=== PATIENT | female | born 1980 | race African-American/Black ===

== ENCOUNTER 2016-11-15 12:52 | Emergency (ER) | payer MEDICAID ==
--- NOTE | 2016-11-15 13:11 | ER Document Report ---
ED General - General Chief Complaint: Headache Stated Complaint: HEADACHE Time Seen by Provider: 11/15/16 13:00 Mode of Arrival: Ambulatory Information source: Patient Notes: 36-year-old female presents with complaints of headache of one-week duration that is waxing and waning. Patient states she has had headaches in the past but believes this is a migraine. Symptoms started with her menses. Patient admits to photophobia mild noise sensitivity. Patient denies any neurological deficits. She notes she stopped taking her amlodipine believes from blood pressure may be causing this TRAVEL OUTSIDE OF THE [place] IN LAST 30 DAYS: No - HPI Onset: Last week Onset/Duration: Persistent, Waxing and waning Quality of pain: Achy, Pressure Severity: Mild Pain Level: 1 Associated symptoms: Other Exacerbated by: Other Relieved by: Denies Similar symptoms previously: No Recently seen / treated by doctor: No - Related Data Allergies/Adverse Reactions: No Known Allergies Allergy (Verified 11/15/16 12:54) Past Medical History - Social History Smoking Status: Never Smoker Cigarette use (# per day): No Chew tobacco use (# tins/day): No Smoking Education Provided: No Family History: Reviewed & Not Pertinent Patient has suicidal ideation: No Patient has homicidal ideation: No Pulmonary Medical History: Reports: Hx Asthma Renal/ Medical History: Denies: Hx Peritoneal Dialysis - Immunizations Immunizations up to date: Yes Hx Diphtheria, Pertussis, Tetanus Vaccination: Yes Review of Systems - Review of Systems Notes: REVIEW OF SYSTEMS: CONSTITUTIONAL : Denies fever, chills, or sweats. Denies recent illness. EENT: Denies eye, ear, throat, or mouth pain or symptoms. Denies nasal or sinus congestion or discharge. Denies throat, tongue, or mouth swelling or difficulty swallowing. CARDIOVASCULAR: Denies chest pain. Denies palpitations or racing or irregular heart beat. Denies ankle edema. RESPIRATORY: Denies cough, cold, or chest congestion. Denies shortness of breath, difficulty breathing, or wheezing. GASTROINTESTINAL: Denies abdominal pain or distention. Denies nausea, vomiting , or diarrhea. Denies blood in vomitus, stools, or per rectum. Denies black, tarry stools. Denies constipation. GENITOURINARY: Denies difficulty urinating, painful urination, burning, frequency, blood in urine, or discharge. FEMALE GENITOURINARY: Denies vaginal bleeding, heavy or abnormal periods, irregular periods. Denies vaginal discharge or odor. MUSCULOSKELETAL: Denies back or neck pain or stiffness. Denies joint pain or swelling. SKIN: Denies rash, lesions or sores. HEMATOLOGIC : Denies easy bruising or bleeding. LYMPHATIC: Denies swollen, enlarged glands. NEUROLOGICAL: Admits to headache light sensitivity PSYCHIATRIC: Denies anxiety or stress. Denies depression, suicidal ideation, or homicidal ideation. ALL OTHER SYSTEMS REVIEWED AND NEGATIVE. PHYSICAL EXAMINATION: GENERAL: Well-appearing, well-nourished and in no acute distress. HEAD: Atraumatic, normocephalic. EYES: Pupils equal round and reactive to light, extraocular movements intact, conjunctiva are normal. ENT: Nares patent, oropharynx clear without exudates. Moist mucous membranes. NECK: Normal range of motion, supple without lymphadenopathy LUNGS: Breath sounds clear to auscultation bilaterally and equal. No wheezes rales or rhonchi. HEART: Regular rate and rhythm without murmurs ABDOMEN: Soft, nontender, nondistended abdomen. No guarding, no rebound. No masses appreciated. Female : deferred Musculoskeletal: Normal range of motion, no pitting or edema. No cyanosis. NEUROLOGICAL: Cranial nerves grossly intact. Normal speech, normal gait. Normal sensory, motor exams PSYCH: Normal mood, normal affect. SKIN: Warm, Dry, normal turgor, no rashes or lesions noted. Dictation was performed using [employer] voice recognition software Physical Exam - Vital signs Vitals: Temp Pulse Resp BP Pulse Ox 98.6 F 66 18 151/99 H 100 11/15/16 12:55 11/15/16 12:55 11/15/16 12:55 11/15/16 12:55 11/15/16 12:55 Course - Re-evaluation Re-evalutation: 11/15/16 13:11 Patient's neurological exam was intact, CT head is pending at this time 11/15/16 14:03 CT head noted no acute abnormality, patient was given medication wishes to wait in the waiting room for her ride After performing a Medical Screening Examination, I estimate there is LOW risk for ACUTE GLAUCOMA, TEMPORAL ARTERITIS, MENINGITIS, INCRANIAL HEMORRHAGE, or ISCHEMIC STROKE thus I consider the discharge disposition reasonable. I have reevaluated this patient multiple times and no significant life threatening changes are noted. The patient and I have discussed the diagnosis and risks, and we agree with discharging home with close follow-up with the understanding that symptoms and presentations can change. We also discussed returning to the Emergency Department immediately if new or worsening symptoms occur. We have discussed the symptoms which are most concerning (e.g., changing or worsening symptoms, new numbness or weakness, vomiting, fever) that necessitate immediate return. - Vital Signs Vital signs: Temp Pulse Resp BP Pulse Ox 98.6 F 66 18 151/99 H 100 11/15/16 12:55 11/15/16 12:55 11/15/16 12:55 11/15/16 12:55 11/15/16 12:55 - Diagnostic Test Radiology reviewed: Image reviewed, Reports reviewed - no acute abnormality Discharge - Discharge Clinical Impression: Migraine Qualifiers: Migraine type: with aura Status migrainosus presence: without status migrainosus Intractability: not intractable Qualified Code(s): G43.109 - Migraine with aura, not intractable, without status migrainosus Condition: Stable Disposition: HOME, SELF-CARE Instructions: Headache ([facility]) Prescriptions: Diphenhydramine HCl [Benadryl 50 mg Capsule] 50 mg PO Q6 #20 capsule Promethazine HCl [Phenergan 25 mg Tablet] 1 - 2 tab PO Q6H PRN #15 tablet PRN Reason: Referrals: ZACKERY REAL MD [ACTIVE STAFF] - Follow up tomorrow
[2016-11-15] MEDS ORDERED: PROCHLORPERAZINE EDISYLATE INJ 10 MG/2 ML VIAL IM ONE (13:49)
[2016-11-15] MEDS ORDERED: DIPHENHYDRAMINE HCL 50 MG/ML VIAL IM ONE (13:49)
--- NOTE | 2016-11-15 13:57 | RADIOLOGY REPORT (SQ) ---
EXAM DESCRIPTION: CT HEAD WITHOUT COMPLETED DATE/TIME: 11/15/2016 1:39 pm REASON FOR STUDY: headache COMPARISON: None. TECHNIQUE: Axial images acquired through the brain without intravenous contrast. Images reviewed wi th bone, brain and subdural windows. Images stored on PACS. All CT scanners at this facility use dose modulation, iterative reconstruction, and/or weight based d osing when appropriate to reduce radiation dose to as low as reasonably achievable (ALARA). [facility]: Dose Right [facility]: CareDose [facility]: Dose Right [facility]: Teradose 4D [facility]: OneBreath RADIATION DOSE: Up-to-date CT equipment and radiation dose reduction techniques were employed. CTDIv ol: 49.0 mGy. DLP: 881 mGy-cm. mGy. LIMITATIONS: None. FINDINGS: VENTRICLES: Normal size and contour. CEREBRUM: No masses. No hemorrhage. No midline shift. No evidence for acute infarction. Normal gra y/white matter differentiation. No areas of low density in the white matter. CEREBELLUM: No masses. No hemorrhage. No alteration of density. No evidence for acute infarction. EXTRAAXIAL SPACES: No fluid collections. No masses. ORBITS AND GLOBE: No intra- or extraconal masses. Normal contour of globe without masses. CALVARIUM: No fracture. PARANASAL SINUSES: No fluid or mucosal thickening. SOFT TISSUES: No mass or hematoma. OTHER: No other significant finding. IMPRESSION: NORMAL BRAIN CT WITHOUT CONTRAST. EVIDENCE OF ACUTE STROKE: NO. COMMENT: Quality ID # [id number]: Final reports with documentation of one or more dose reduction techniques (e.g., Automated exposure control, adjustment of the mA and/or kV according to patient size, use of iterative reconstruction technique) TECHNICAL DOCUMENTATION: JOB ID: [id number] [employer]- All Rights Reserved
[2016-11-15 14:07] VITALS: BP 137/81
--- NOTE | 2016-11-17 16:46 | EKG REPORT ---
SEVERITY:- BORDERLINE ECG - SINUS RHYTHM BORDERLINE T ABNORMALITIES, INFERIOR LEADS : Confirmed by: Jemma Butts MD 17-Nov-2016 16:45:09
== END 2016-11-15 14:10 | disposition home or self-care (01) ==
LOC: ER 12:52
DX: G43.109 Migraine with aura, not intractable, without status migrainosus (principal)
CPT/HCPCS: 93005; 99284; 96372; 70450; 93010; J1200; J0780

== ENCOUNTER 2016-12-12 10:19 | Emergency (ER) | payer MEDICAID ==
[2016-12-12] MEDS ORDERED: DIPHENHYDRAMINE HCL 50 MG/ML VIAL IM ONE (10:34)
--- NOTE | 2016-12-12 10:36 | ER Document Report ---
ED Medical Screen (RME) - General Mode of Arrival: Ambulatory Information source: Patient TRAVEL OUTSIDE OF THE [place] IN LAST 30 DAYS: No - General Chief Complaint: Probable Seizure Stated Complaint: POSSIBLE SEIZURES Time Seen by Provider: 12/12/16 10:24 Notes: Patient is a 36 year old female presenting to the emergency department for a possible seizure. Patient states she has been having shaking episodes since yesterday and they come on sporadically. Patient states she has a history of migraines, PTSD, depression, anxiety and hypertension. Patient states she has a slight headache now and states it is similar to her daily headaches that are present when she doesn't have a migraine. Patient has recently started taking 2 new medications x1 week ago which are Rizatriptan and Topiramate. Patient denies any numbness or tingling and states she does not know if she had these episodes while she was sleeping. (BONNIE KAUR) - Related Data Allergies/Adverse Reactions: No Known Allergies Allergy (Verified 12/12/16 10:24) Home Medications: Current Home Medications Amlodipine Besylate [Norvasc 10 mg Tablet] 10 mg PO DAILY 12/12/16 [History] Propranolol HCl [Inderal 40 Mg Tablet] 40 mg PO BID 12/12/16 [History] Rizatriptan Benzoate [Maxalt [employer] Officer] 10 mg PO Q2 PRN MDD 2 tabs 12/12/16 [History] Topiramate [Trokendi Xr] 25 mg PO QAM 12/12/16 [History] Past Medical History - Past Medical History Cardiac Medical History: Reports: Hx Hypertension Pulmonary Medical History: Reports: Hx Asthma Renal/ Medical History: Denies: Hx Peritoneal Dialysis - Immunizations Immunizations up to date: Yes Hx Diphtheria, Pertussis, Tetanus Vaccination: Yes Physical Exam - Vital signs Interpretation: Normal - Vital signs Vitals: Temp Pulse Resp BP Pulse Ox 99.7 F 66 20 122/97 H 100 12/12/16 10:23 12/12/16 10:23 12/12/16 10:23 12/12/16 10:23 12/12/16 10:23 - Notes Notes: GENERAL: Alert, interacts well. Jerking motions of the arms and head during exam -able to talk, follow commands, and squeeze fingers during the jerking motions. No evidence of stroke or seizure. HEAD: Normocephalic, atraumatic, no facial droop. EYES: Pupils equal, round, and reactive to light. Extraocular movements intact. Wearing sunglasses. ENT: Oral mucosa moist, tongue midline. NECK: Full range of motion. Supple. Trachea midline. LUNGS: Clear to auscultation bilaterally, no wheezes, rales, or rhonchi. No respiratory distress. HEART: Regular rate and rhythm. No murmurs, gallops, or rubs. EXTREMITIES: Jerking motions of the upper extremities-able to squeeze fingers with hands and follow commands. NEUROLOGICAL: Alert and oriented x3. Normal speech. PSYCH: Appears annoyed and depressed when discussing the plan for treatment, cannot clarify what else she is concerned about. (BONNIE KAUR) Course - Re-evaluation Re-evalutation: 12/12/16 10:36 Newly started as a triptan and topiramate, suspect possible akathisia's, treat with Benadryl. Check blood work, more detailed exam in the main side of the emergency department. No evidence of stroke or seizure. (VITA VILLANUEVA) - Vital Signs Vital signs: Temp Pulse Resp BP Pulse Ox 99.7 F 66 20 122/97 H 100 12/12/16 10:23 12/12/16 10:23 12/12/16 10:23 12/12/16 10:23 12/12/16 10:23 Scribe Documentation - Scribe Written by Scribe:: Bonnie Kaur, Bj, 12/12/16 10:37 acting as scribe for :: Aedla
[2016-12-12 11:06] LABS: ABSOLUTE EOSINOPHILS # (AUTO) 0.1 10^3/uL (0.0-0.6); ABSOLUTE LYMPHOCYTES (AUTO) 2.7 10^3/uL (0.5-4.7); ABSOLUTE MONOCYTES (AUTO) 0.4 10^3/uL (0.1-1.4); ABSOLUTE NEUT (AUTO) 3.4 10^3/uL (1.7-8.2); BASOPHILS % (AUTO) 0.2 % (0-2); EOSINOPHILS % (AUTO) 1.5 % (0-6); HEMATOCRIT 35.9 % (36.0-47.0); HEMOGLOBIN 12.2 g/dL (12.0-15.5); HGB HCT DIFFERENCE 0.7; LYMPHOCYTES % (AUTO) 40.3 % (13-45); MEAN CORPUSCULAR HEMOGLOBIN 27.5 pg (27.0-33.4); MEAN CORPUSCULAR HGB CONC 34.1 g/dL (32.0-36.0); MEAN CORPUSCULAR VOLUME 81 fl (80-97); MONOCYTES % (AUTO) 6.4 % (3-13); RED BLOOD COUNT 4.45 10^6/uL (3.72-5.28); RED CELL DISTRIBUTION WIDTH 14.1 % (11.5-14.0); SEGMENTED NEUTROPHILS % (AUTO) 51.6 % (42-78); WHITE BLOOD COUNT 6.6 10^3/uL (4.0-10.5)
[2016-12-12 11:12] LABS: APPEARANCE,URINE SLIGHTLY-CLOUDY; BILIRUBIN,URINE NEGATIVE (NEGATIVE); GLUCOSE, URINE NEGATIVE (NEGATIVE); KETONES,URINE NEGATIVE (NEGATIVE); LEUKOCYTE ESTERASE,URINE TRACE (NEGATIVE); NITRITE,URINE NEGATIVE (NEGATIVE); PROTEIN,URINE 30 mg/dL (NEGATIVE); URINE SPECIFIC GRAVITY 1.026
[2016-12-12 11:25] LABS: ALANINE AMINOTRANSFERASE 28 U/L (9-52); ALBUMIN 4.8 g/dL (3.5-5.0); ALKALINE PHOSPHATASE 62 U/L (38-126); ANION GAP 15 (5-19); ASPARTATE AMINO TRANSFERASE 16 U/L (14-36); BILIRUBIN,DIRECT 0.4 mg/dL (0.0-0.4); BILIRUBIN,TOTAL 0.5 mg/dL (0.2-1.3); BLOOD UREA NITROGEN 18 mg/dL (7-20); CALCIUM 10.2 mg/dL (8.4-10.2); CARBON DIOXIDE 25 mmol/L (22-30); CHLORIDE 108 mmol/L (98-107); CREATININE RESULT 0.99 mg/dL (0.52-1.25); GLUCOSE 104 mg/dL (75-110); POTASSIUM 4.3 mmol/L (3.6-5.0); SODIUM 147.6 mmol/L (137-145); TOTAL PROTEIN 8.6 g/dL (6.3-8.2)
[2016-12-12 11:33] LABS: URINE BARBITURATES SCREEN NEGATIVE; URINE METHADONE SCREEN NEGATIVE; URINE OPIATES LOW NEGATIVE; URINE PHENCYCLIDINE SCREEN NEGATIVE
--- NOTE | 2016-12-12 12:30 | ER Document Report ---
ED General - General Chief Complaint: Probable Seizure Stated Complaint: POSSIBLE SEIZURES Time Seen by Provider: 12/12/16 10:24 Mode of Arrival: Ambulatory Information source: Patient Notes: 36-year-old female history of migraine headaches who was started on Topamax and Almas triptan presents with complaints of jerking episodes. Patient notes symptoms have been ongoing now for 2 days denies any fevers chills denies any nausea vomiting or diarrhea. Patient states she is awake when the jerking events occur and is concerned that she may be having seizures TRAVEL OUTSIDE OF THE [place] IN LAST 30 DAYS: No - HPI Onset: Other Onset/Duration: Intermittent Quality of pain: No pain Severity: Mild Pain Level: Denies Associated symptoms: Other Exacerbated by: Denies Relieved by: Denies Similar symptoms previously: No Recently seen / treated by doctor: No - Related Data Allergies/Adverse Reactions: No Known Allergies Allergy (Verified 12/12/16 10:24) Home Medications: Current Home Medications Amlodipine Besylate [Norvasc 10 mg Tablet] 10 mg PO DAILY 12/12/16 [History] Propranolol HCl [Inderal 40 Mg Tablet] 40 mg PO BID 12/12/16 [History] Rizatriptan Benzoate [Maxalt Forensic Anthropologist] 10 mg PO Q2 PRN MDD 2 tabs 12/12/16 [History] Topiramate [Trokendi Xr] 25 mg PO QAM 12/12/16 [History] Past Medical History - General Information source: Patient - Social History Smoking Status: Never Smoker Cigarette use (# per day): No Chew tobacco use (# tins/day): No Smoking Education Provided: No Frequency of alcohol use: None Drug Abuse: None Family History: Reviewed & Not Pertinent - Past Medical History Cardiac Medical History: Reports: Hx Hypertension Pulmonary Medical History: Reports: Hx Asthma Neurological Medical History: Reports: Hx Migraine Renal/ Medical History: Denies: Hx Peritoneal Dialysis Psychiatric Medical History: Reports: Hx Depression Surgical Hx: Negative - Immunizations Immunizations up to date: Yes Hx Diphtheria, Pertussis, Tetanus Vaccination: Yes Review of Systems - Review of Systems Notes: REVIEW OF SYSTEMS: CONSTITUTIONAL : Denies fever, chills, or sweats. Denies recent illness. EENT: Denies eye, ear, throat, or mouth pain or symptoms. Denies nasal or sinus congestion or discharge. Denies throat, tongue, or mouth swelling or difficulty swallowing. CARDIOVASCULAR: Denies chest pain. Denies palpitations or racing or irregular heart beat. Denies ankle edema. RESPIRATORY: Denies cough, cold, or chest congestion. Denies shortness of breath, difficulty breathing, or wheezing. GASTROINTESTINAL: Denies abdominal pain or distention. Denies nausea, vomiting , or diarrhea. Denies blood in vomitus, stools, or per rectum. Denies black, tarry stools. Denies constipation. GENITOURINARY: Denies difficulty urinating, painful urination, burning, frequency, blood in urine, or discharge. FEMALE GENITOURINARY: Denies vaginal bleeding, heavy or abnormal periods, irregular periods. Denies vaginal discharge or odor. MUSCULOSKELETAL: Admits to drinking episodes SKIN: Denies rash, lesions or sores. HEMATOLOGIC : Denies easy bruising or bleeding. LYMPHATIC: Denies swollen, enlarged glands. NEUROLOGICAL: Denies confusion or altered mental status. Denies passing out or loss of consciousness. Denies dizziness or lightheadedness. Denies headache. Denies weakness or paralysis or loss of use of either side. Denies problems with gait or speech. Denies sensory loss, numbness, or tingling. Denies seizures. PSYCHIATRIC: Denies anxiety or stress. Denies depression, suicidal ideation, or homicidal ideation. ALL OTHER SYSTEMS REVIEWED AND NEGATIVE. PHYSICAL EXAMINATION: GENERAL: Well-appearing, well-nourished and in no acute distress. HEAD: Atraumatic, normocephalic. EYES: Pupils equal round and reactive to light, extraocular movements intact, conjunctiva are normal. ENT: Nares patent, oropharynx clear without exudates. Moist mucous membranes. NECK: Normal range of motion, supple without lymphadenopathy LUNGS: Breath sounds clear to auscultation bilaterally and equal. No wheezes rales or rhonchi. HEART: Regular rate and rhythm without murmurs ABDOMEN: Soft, nontender, nondistended abdomen. No guarding, no rebound. No masses appreciated. Female : deferred Musculoskeletal: Normal range of motion, no pitting or edema. No cyanosis. NEUROLOGICAL: Cranial nerves grossly intact. Normal speech, normal gait. Normal sensory, motor exams PSYCH: Normal mood, normal affect. SKIN: Warm, Dry, normal turgor, no rashes or lesions noted. Dictation was performed using [employer] voice recognition software Physical Exam - Vital signs Vitals: Temp Pulse Resp BP Pulse Ox 99.7 F 66 20 122/97 H 100 12/12/16 10:23 12/12/16 10:23 12/12/16 10:23 12/12/16 10:23 12/12/16 10:23 Course - Re-evaluation Re-evalutation: 12/12/16 12:27 Rizatriptan and Topiramate had recently been started on the patient 6 days ago , I have concerned that she may be having a dystonic reaction secondary to this , I have asked for her to not take the raise the triptan and to instead continue the Topamax at this time while taking Benadryl. If the patient's symptoms do not improve then it may be the Topamax that is the issue. Patient has been instructed to follow-up with a neurologist for further evaluation care 12/12/16 15:32 After performing a Medical Screening Examination, I estimate there is LOW risk for ACUTE GLAUCOMA, TEMPORAL ARTERITIS, MENINGITIS, INCRANIAL HEMORRHAGE, or ISCHEMIC STROKE thus I consider the discharge disposition reasonable. I have reevaluated this patient multiple times and no significant life threatening changes are noted. The patient and I have discussed the diagnosis and risks, and we agree with discharging home with close follow-up with the understanding that symptoms and presentations can change. We also discussed returning to the Emergency Department immediately if new or worsening symptoms occur. We have discussed the symptoms which are most concerning (e.g., changing or worsening symptoms, new numbness or weakness, vomiting, fever) that necessitate immediate return. - Vital Signs Vital signs: Temp Pulse Resp BP Pulse Ox 98.9 F 69 16 111/84 100 12/12/16 12:47 12/12/16 12:47 12/12/16 12:47 12/12/16 12:47 12/12/16 12:47 - Laboratory Result Diagrams: 12/12/16 10:55 12/12/16 10:55 Laboratory results interpreted by me: 12/12/16 12/12/16 12/12/16 10:45 10:55 10:55 Hct 35.9 L RDW 14.1 H Sodium 147.6 H Chloride 108 H Total Protein 8.6 H Urine Protein 30 H Urine Urobilinogen 2.0 H Ur Leukocyte Esterase TRACE H Urine Ascorbic Acid 40 H Discharge - Discharge Clinical Impression: Medication reaction Qualifiers: Encounter type: initial encounter Qualified Code(s): T88.7XXA - Unspecified adverse effect of drug or medicament, initial encounter Condition: Stable Disposition: HOME, SELF-CARE Instructions: Dystonic Reaction to Medication ([facility]) Additional Instructions: Please follow-up with your neurologist for reevaluation or return immediately if there are any other concerns Prescriptions: Diphenhydramine HCl [Benadryl 50 mg Capsule] 1 cap PO Q6 PRN #20 capsule PRN Reason:
[2016-12-12 12:48] VITALS: BP 111/84
== END 2016-12-12 12:47 | disposition home or self-care (01) ==
LOC: ER 10:19
DX: T88.7XXA Unspecified adverse effect of drug or medicament, initial encounter (principal); R25.1 Tremor, unspecified; Z79.899 Other long term (current) drug therapy
CPT/HCPCS: 99283; 96372; 36415; 85025; 81025; 80053; 81001; 80307; J1200

== ENCOUNTER 2019-12-06 09:01 | Emergency (ER) | payer MEDICAID ==
--- NOTE | 2019-12-06 09:52 | ER Document Report ---
ED Medical Screen (RME) - General Chief Complaint: Probable Seizure Stated Complaint: TREMORS Time Seen by Provider: 12/06/19 09:40 Information source: Patient, Relative Notes: Patient presents aphasic. Patient son is at the bedside who reports that he woke up and mom was not able to speak. Mother writes down that she has a history of seizures and had a seizure today and last week. Patient did drive herself here although refuses to look at staff and only will shake her head yes or no and will occasionally write answers to questions. Patient complains of right upper extremity pain. Patient reports a history of migraines, hypertension and seizure. I have greeted and performed a rapid initial assessment of this patient. A comprehensive ED assessment and evaluation of the patient, analysis of test results and completion of the medical decision making process will be conducted by additional ED providers. TRAVEL OUTSIDE OF THE [place] IN LAST 30 DAYS: No - Related Data Allergies/Adverse Reactions: No Known Allergies Allergy (Verified 12/12/16 10:24) Past Medical History - Social History Chew tobacco use (# tins/day): No Drug Abuse: None - Past Medical History Cardiac Medical History: Reports: Hx Hypertension Pulmonary Medical History: Reports: Hx Asthma Neurological Medical History: Reports: Hx Migraine Renal/ Medical History: Denies: Hx Peritoneal Dialysis Psychiatric Medical History: Reports: Hx Depression - Immunizations Immunizations up to date: Yes Hx Diphtheria, Pertussis, Tetanus Vaccination: Yes Physical Exam - Vital signs Vitals: Temp Pulse Resp BP Pulse Ox 98.9 F 119 H 20 203/117 H 99 12/06/19 09:08 12/06/19 09:08 12/06/19 09:08 12/06/19 09:08 12/06/19 09:08 - Notes Notes: Patient refuses to make eye contact, writes down with the use of both hands that she has right arm pain. I have greeted and performed a rapid initial assessment of this patient. A comprehensive ED assessment and evaluation of the patient, analysis of test results and completion of the medical decision making process will be conducted by additional ED providers. - Neurological Solomon Coma Scale Eye Opening: Spontaneous [place] Coma Scale Verbal: None [place] Coma Scale Motor: Obeys Commands Solomon Coma Scale Total: 11 Course - Vital Signs Vital signs: Temp Pulse Resp BP Pulse Ox 98.9 F 119 H 20 193/142 H 99 12/06/19 09:08 12/06/19 09:08 12/06/19 09:08 12/06/19 09:43 12/06/19 09:08
[2019-12-06] MEDS ORDERED: NORMAL SALINE 1000 ML 1,000 ML IV ONE (10:16)
[2019-12-06 10:29] LABS: ABSOLUTE BASOPHILS # (AUTO) 0.1 10^3/uL (0.0-0.2); ABSOLUTE LYMPHOCYTES (AUTO) 1.7 10^3/uL (0.5-4.7); ABSOLUTE MONOCYTES (AUTO) 0.5 10^3/uL (0.1-1.4); ABSOLUTE NEUT (AUTO) 4.7 10^3/uL (1.7-8.2); BASOPHILS % (AUTO) 1.1 % (0-2); EOSINOPHILS % (AUTO) 0.5 % (0-6); HEMATOCRIT 35.5 % (36.0-47.0); HEMOGLOBIN 11.9 g/dL (12.0-15.5); LYMPHOCYTES % (AUTO) 23.6 % (13-45); MEAN CORPUSCULAR HEMOGLOBIN 25.8 pg (27.0-33.4); MEAN CORPUSCULAR HGB CONC 33.4 g/dL (32.0-36.0); MEAN CORPUSCULAR VOLUME 77 fl (80-97); MONOCYTES % (AUTO) 7.7 % (3-13); PLATELET COUNT 375 10^3/uL (150-450); RED CELL DISTRIBUTION WIDTH 16.1 % (11.5-14.0); SEGMENTED NEUTROPHILS % (AUTO) 67.1 % (42-78); TOTAL CELLS COUNTED % (AUTO) 100 %; WHITE BLOOD COUNT 7.1 10^3/uL (4.0-10.5)
[2019-12-06 10:33] LABS: INTERNATIONAL RATION (INR) 0.89
[2019-12-06 10:36] LABS: PROTHROMBIN TIME 12.3 SEC (11.4-15.4)
[2019-12-06 10:59] LABS: ALBUMIN 4.9 g/dL (3.5-5.0); ALKALINE PHOSPHATASE 82 U/L (38-126); ANION GAP 15 (5-19); ASPARTATE AMINO TRANSFERASE 28 U/L (14-36); BILIRUBIN,DIRECT 0.3 mg/dL (0.0-0.4); BILIRUBIN,TOTAL 0.6 mg/dL (0.2-1.3); BLOOD UREA NITROGEN 11 mg/dL (7-20); CALCIUM 10.4 mg/dL (8.4-10.2); CARBON DIOXIDE 22 mmol/L (22-30); CHLORIDE 103 mmol/L (98-107); CREATINE KINASE 136 U/L (30-135); GLUCOSE 114 mg/dL (75-110); POTASSIUM 4.2 mmol/L (3.6-5.0); TOTAL PROTEIN 9.1 g/dL (6.3-8.2)
[2019-12-06 11:00] LABS: ALCOHOL < 10 mg/dL (NONE DETECTED)
--- NOTE | 2019-12-06 11:06 | RADIOLOGY REPORT (SQ) ---
EXAM DESCRIPTION: CHEST SINGLE VIEW IMAGES COMPLETED DATE/TIME: 12/06/2019 10:57 am REASON FOR STUDY: aphasic COMPARISON: 07/31/2008 EXAM PARAMETERS: NUMBER OF VIEWS: One view. TECHNIQUE: Single frontal radiographic view of the chest acquired. RADIATION DOSE: NA LIMITATIONS: None. FINDINGS: LUNGS AND PLEURA: No opacities, masses or pneumothorax. No pleural effusion. MEDIASTINUM AND HILAR STRUCTURES: No masses. Contour normal. HEART AND VASCULAR STRUCTURES: Heart normal in size. Normal vasculature. BONES: No acute findings. HARDWARE: None in the chest. OTHER: No other significant finding. IMPRESSION: NO ACUTE RADIOGRAPHIC FINDING IN THE CHEST. TECHNICAL DOCUMENTATION: JOB ID: [id number] 2010 [facility]- All Rights Reserved Reading location - IP/workstation name: [email or web address]
--- NOTE | 2019-12-06 11:06 | RADIOLOGY REPORT (SQ) ---
EXAM DESCRIPTION: CT HEAD WITHOUT IMAGES COMPLETED DATE/TIME: 12/06/2019 10:53 am REASON FOR STUDY: aphasic, HTN COMPARISON: None. TECHNIQUE: Axial images acquired through the brain without intravenous contrast. Images reviewed wi th bone, brain and subdural windows. Additional sagittal and coronal reconstructions were generated. Images stored on PACS. All CT scanners at this facility use dose modulation, iterative reconstruction, and/or weight based d osing when appropriate to reduce radiation dose to as low as reasonably achievable (ALARA). [facility]: Dose Right [facility]: CareDose [facility]: Dose Right [facility]: Teradose 4D [facility]: ITM Power RADIATION DOSE: CT Rad equipment meets quality standard of care and radiation dose reduction techniq ues were employed. CTDIvol: 53.2 mGy. DLP: 1097 mGy-cm. mGy. LIMITATIONS: Patient motion FINDINGS: VENTRICLES: Normal size and contour. CEREBRUM: No masses. No hemorrhage. No midline shift. No evidence for acute infarction. Normal gra y/white matter differentiation. No areas of low density in the white matter. CEREBELLUM: No masses. No hemorrhage. No alteration of density. No evidence for acute infarction. EXTRAAXIAL SPACES: No fluid collections. No masses. ORBITS AND GLOBE: No intra- or extraconal masses. Normal contour of globe without masses. CALVARIUM: No fracture. PARANASAL SINUSES: No fluid or mucosal thickening. SOFT TISSUES: No mass or hematoma. OTHER: No other significant finding. IMPRESSION: NORMAL BRAIN CT WITHOUT CONTRAST. EVIDENCE OF ACUTE STROKE: NO. COMMENT: Quality ID # [id number]: Final reports with documentation of one or more dose reduction techniques (e.g., Automated exposure control, adjustment of the mA and/or kV according to patient size, use of iterative reconstruction technique) TECHNICAL DOCUMENTATION: JOB ID: [id number] 2010 [employer]- All Rights Reserved Reading location - IP/workstation name: [email or web address]
--- NOTE | 2019-12-06 13:55 | ER Document Report ---
ED General - General Chief Complaint: Probable Seizure Stated Complaint: TREMORS Time Seen by Provider: 12/06/19 09:40 Mode of Arrival: Ambulatory Information source: Patient TRAVEL OUTSIDE OF THE [place] IN LAST 30 DAYS: No - HPI Notes: Patient drove her self to the hospital presents stating that she believes she has had a seizure. States she is now feeling weak and having trouble speaking. Patient would not speak at triage but just wrote notes. Son accompanies patient emerged from. Son states that when he woke up this morning he went into the [facility] and his mom wrote a note stating that she could not talk and that they need to go to the hospital. He states his mom then drove the 2 of them to this hospital. He states mom states that she had a seizure this morning and that she has been having some shaking. Patient agrees that she has been having some shaking. No known fevers nausea or vomiting. No known trauma. Symptoms have apparently been constant. Nothing makes them better or worse. The shaking appears to radiate throughout her body. - Related Data Allergies/Adverse Reactions: No Known Allergies Allergy (Verified 12/12/16 10:24) Past Medical History - General Information source: Patient, Relative - Social History Smoking Status: Never Smoker Chew tobacco use (# tins/day): No Frequency of alcohol use: None Drug Abuse: None Family History: Reviewed & Not Pertinent Patient has homicidal ideation: No - Past Medical History Cardiac Medical History: Reports: Hx Hypertension Pulmonary Medical History: Reports: Hx Asthma Neurological Medical History: Reports: Hx Migraine Renal/ Medical History: Denies: Hx Peritoneal Dialysis Psychiatric Medical History: Reports: Hx Depression - Immunizations Immunizations up to date: Yes Hx Diphtheria, Pertussis, Tetanus Vaccination: Yes Review of Systems - Review of Systems Constitutional: denies: Chills, Fever Cardiovascular: denies: Chest pain, Palpitations Respiratory: denies: Cough, Short of breath -: Yes All other systems reviewed and negative Physical Exam - Vital signs Vitals: Temp Pulse Resp BP Pulse Ox 98.9 F 119 H 20 203/117 H 99 12/06/19 09:08 12/06/19 09:08 12/06/19 09:08 12/06/19 09:08 12/06/19 09:08 Interpretation: Hypertensive - Patient admits to being out of her high blood pressure medication, Tachycardic - General General appearance: Appears well, Alert - HEENT Head: Normocephalic, Atraumatic Eyes: Normal Pupils: PERRL - Respiratory Respiratory status: No respiratory distress Chest status: Nontender Breath sounds: Normal Chest palpation: Normal - Cardiovascular Rhythm: Tachycardia Heart sounds: Normal auscultation Murmur: No - Abdominal Inspection: Normal Distension: No distension Bowel sounds: Normal Tenderness: Nontender Organomegaly: No organomegaly - Back Back: Normal, Nontender - Extremities General upper extremity: Normal inspection, Nontender, Normal color, Normal ROM, Normal temperature General lower extremity: Normal inspection, Nontender, Normal color, Normal ROM, Normal temperature, Normal weight bearing. No: Rodrigo's sign - Neurological Neuro grossly intact: Yes Cognition: Normal Vermillion Coma Scale Eye Opening: Spontaneous Vermillion Coma Scale Verbal: Oriented Solomon Coma Scale Motor: Obeys Commands Solomon Coma Scale Total: 15 Speech: Other - Patient whispers intermittently Additional motor exam normals: Other - Patient will not cooperate with motor or coordination exam Sensory: Other - No focal deficits are appreciated on exam - Psychological Associated symptoms: Flat affect, Psychomotor depression - Skin Skin Temperature: Warm Skin Moisture: Dry Skin Color: Normal Course - Re-evaluation Re-evalutation: 12/06/19 13:59 Patient drove her self to the hospital and walked in the triage. She then stated that she was unable to talk. She did this by writing a note in triage. She also apparently wrote a note to her son this morning. However patient has talked in the room sometimes she whispers and has an audible temperature was prolonged enough that you can understand her. Other times she will not talk and will just shake her head. Patient also has been unable to ambulate. She did urinate in the bed one time. I can find no evidence of neurological deficits. Head CT is normal and there is no focal exam. Patient is not on any antiseizure medications but she is on migraine medication. Patient stated that she felt too weak to go home. I called multiple outlying hospitals including [facility], [place], [facility], and [place]. All of them stated that they currently had no beds and could not accept the patient. We do not have neurology present at our hospital. I went back and explained this to the patient and told her that I felt an outpatient work-up would be appropriate and that I could discharge her home with her blood pressure medication and her Topamax. She shook her head and said yes she would agree to this plan. I also explained to the patient that I felt what she was experiencing could be secondary to stress and offered her behavioral health counseling however patient declined this. Also patient declined to allow me to give her any type of IV fluids including normal saline, dextrose, lactated Ringer's or any combination of them. Patient will be instructed that she is not to drive a car until she has been cleared by her primary doctor. - Vital Signs Vital signs: Temp Pulse Resp BP Pulse Ox 98.9 F 119 H 16 168/114 H 98 12/06/19 09:08 12/06/19 09:08 12/06/19 13:01 12/06/19 13:01 12/06/19 10:51 - Laboratory Result Diagrams: 12/06/19 10:12 12/06/19 10:12 Laboratory results interpreted by me: 12/06/19 12/06/19 10:12 10:12 Hgb 11.9 L Hct 35.5 L MCV 77 L MCH 25.8 L RDW 16.1 H Glucose 114 H Calcium 10.4 H Creatine Kinase 136 H Total Protein 9.1 H - Diagnostic Test Radiology reviewed: Image reviewed, Reports reviewed Discharge - Discharge Clinical Impression: Migraine headache Qualifiers: Migraine type: unspecified Status migrainosus presence: without status migrainosus Intractability: not intractable Qualified Code(s): G43.909 - Migra ine, unspecified, not intractable, without status migrainosus Condition: Stable Disposition: HOME, SELF-CARE Instructions: Headache ([facility]) Additional Instructions: Please do not operate any type of automobile until you are cleared by your family physician. Please follow-up with your family physician as soon as possible. Prescriptions: Amlodipine Besylate [Norvasc 10 mg Tablet] 10 mg PO DAILY #30 tablet Topiramate [Topamax 25 mg Tablet] 25 mg PO DAILY #30 tab Forms: Return to Work Referrals: YARELY GUERRA MD [COMMUNITY BASED STAFF] - Follow up as needed
[2019-12-06] MEDS ORDERED: AMLODIPINE BESYLATE 10 MG TABLET PO ONE (15:00)
[2019-12-06 15:19] VITALS: BP 175/117
--- NOTE | 2019-12-08 18:13 | EKG REPORT ---
SEVERITY:- ABNORMAL ECG - SINUS RHYTHM LEFT VENTRICULAR HYPERTROPHY NONSPECIFIC T ABNORMALITIES, INFERIOR LEADS : Confirmed by: Alessio Preston 08-Dec-2019 18:13:05
== END 2019-12-06 15:07 | disposition home or self-care (01) ==
LOC: ER 09:01
DX: G43.909 Migraine, unspecified, not intractable, without status migrainosus (principal); I10 Essential (primary) hypertension; R53.1 Weakness; R47.01 Aphasia; R00.0 Tachycardia, unspecified; J45.909 Unspecified asthma, uncomplicated; Z79.899 Other long term (current) drug therapy
CPT/HCPCS: 36415; 70450; 71045; 80053; 80307; 82550; 84484; 85025; 85610; 93005; 93010; 99285